=== PATIENT | female | born 1990 | race Caucasian/White ===

== ENCOUNTER 2019-02-20 22:27 | Inpatient (IN) ==
[2019-02-20] MEDS ORDERED: OXYTOCIN 30 UNITS/500 ML BAG IV PRN ×2 (23:06→23:34)
--- NOTE | 2019-02-20 23:06 | History & Physical Report ---
Date of Service February 20, 2019 Assessment & Plan (1) 36 weeks gestation of : 28yo @ 36 3/7 with PPROM. Admit to L&D, labs, EFM/toco, IV access. Unknown GBS status - will treat with Pen G. Pre-37w pending delivery - will give celestone, at least first dose. If still in 24h, will give 2nd dose. Will allow patient to ambulate, but if no regular ctx by 6h post-PPROM, will recommend starting pitocin. She plans to have an epidural. History of Present Illness Chief Complaint: rupture of membranes Primary Care Provider: NO PCP 28yo @ 36 3/7 with large gush of clear fluid at about 9pm this evening. She is from [facility], and has been visiting a cabin near [facility] earlier today. Occasional contractions. No vaginal bleeding. Some movement. She states has been uncomplicated. EDC 03/17/19 based on LMP 06/10/18, confirmed by 20w US. labs: Blood type O+, antibody screen negative, hemoglobin 11.3, hematocrit 33.1, platelets 176, positive history of varicella, rubella immune, treponema non-reactive, HBsAg negative, HIV negative, 28-week labs: Hemoglobin 10.9, platelets 183, Glucola 112. Group B strep swab has not yet been done-is scheduled for her next visit in the office. Per office notes, patient declined genetic testing. Received Tdap 01/24/2019. Allergies Allergy/AdvReac Type Severity Reaction Status Date / Time No Known Allergies Allergy Verified 02/20/19 23:11 Home Medications Home Medications Medication Instructions Recorded Confirmed Type PNV cmb#95-ferrous fumarate-FA 1 tab PO DAILY 02/20/19 02/20/19 History [] ferrous sulfate [iron] 325 mg PO DAILY 02/20/19 02/20/19 History Patient History Medical History [place] teeth removed at age 16 Review of Systems All systems reviewed & are unremarkable except as noted in HPI & below Physical Exam Physical Exam: Gen: AAOx3 NAD CV: RRR L: CTAB Abd: soft, gravid, NTTP Ext: no edema, no calf tenderness SVE: grossly ruptured, /-2. FHT: Cat 1, reactive NST [place]: rare Limited bedside ultrasound: cephalic, + movement and cardiac activity, minimal fluid, anterior placenta. Results & Data Vital Signs (Past 12 Hours) Vital Signs Pulse BP 02/20/19 22:43 71 138/82 02/20/19 22:42 74 127/101 H
[2019-02-20] MEDS: LACTATED RINGER'S 1,000 ML IV PRN (23:11)
[2019-02-20] MEDS ORDERED: PENICILLIN G POTASSIUM 6 MU in DEXTROSE 5% 250 ML IV ONE (23:15)
[2019-02-20 23:22] LABS: Hematocrit (blood only) 30.8 % (37-47); Hemoglobin 10.8 g/dL (12.0-16.0); Mean Corpuscular Volume 91.9 fL (80-100); Mean Platelet Volume 10.4 fL (7.4-10.4); Platelet Count 152 K/uL (130-400); RDW Coefficient of Variation 13.2 % (11.5-14.5); RDW Standard Deviation 43.8 fL (36.4-46.3); Red Blood Count 3.35 M/uL (4.2-5.4); White Blood Count 10.99 K/uL (4.8-10.8)
[2019-02-20] MEDS ORDERED: BETAMETH SOD PHOS/ACETATE IA 6 MG/ML ONE (23:57)
[2019-02-21 00:23] LABS: Mean Corpuscular Hgb Conc 35.1 g/dL (32-36)
[2019-02-21] MEDS ORDERED: ePHEDrine sulfate 50 MG/ML AMP ONE (01:47)
[2019-02-21] MEDS ORDERED: BUPIVACAINE 0.25% 30 ML VIAL ONE (01:47)
[2019-02-21] MEDS ORDERED: fentaNYL 2MCG/ML ROPIV 1.25MG/ML 100 ML BAG EPI ONE (01:48)
[2019-02-21] MEDS ORDERED: fentaNYL citrate 100 MCG/2 ML VIAL ONE (01:48)
--- NOTE | 2019-02-21 02:16 | Anesthesiology Consultation ---
Date of Service February 21, 2019 Assessment & Plan (1) Encounter for pre-operative examination: Chart Review Chart Review: Acceptable Risk for Labor Epidural History Height/Weight Height: 5 ft 4 in Weight: 68.492 kg Allergies Allergy/AdvReac Type Severity Reaction Status Date / Time No Known Allergies Allergy Verified 02/20/19 23:11 Medications Home Medications Medication Instructions Recorded Confirmed Last Taken PNV cmb#95-ferrous fumarate-FA 1 tab PO DAILY 02/20/19 02/20/19 02/20/19 08:00 [] ferrous sulfate [iron] 325 mg PO DAILY 02/20/19 02/20/19 02/20/19 08:00 Active Medications Generic Name Dose Route Start Last Admin Trade Name Freq PRN Reason Stop Dose Admin Betamethasone Acet/Betameth SodPhos 12 mg 02/21/19 09:00 02/21/19 00:09 Celestone Soluspan IM 02/22/19 09:01 12 mg DAILY KOBE Administration Lactated Ringer's 1,000 mls @ 125 mls/hr 02/20/19 23:06 02/21/19 01:40 Lr IV 02/22/19 23:05 999 mls/hr .Q8H PRN Infusion L&D Protocol Protocol Oxytocin 30 units in 500 mls @ 5 mls/hr 02/20/19 23:34 02/21/19 01:35 Pitocin IV 02/22/19 23:33 0.3 units/hr .Q24H PRN 5 mls/hr Labor Induction/Augmentation Titration Protocol 0.3 UNITS/HR Past Medical History Medical History No significant active problems Past Surgical History Surgical History [place] teeth removed at age 16 Social History Smoking Status: Never smoker Hx Alcohol Use: No Hx Substance Use: No Physical Exam Vital Signs Last Vital Signs Temp 37.2 C 02/21/19 00:35 Pulse 76 02/21/19 02:09 Resp 18 02/21/19 00:35 BP 136/86 02/21/19 02:07 Pulse Ox 99 02/21/19 02:09 Testing Laboratory Results 02/20/19 23:12
[2019-02-21] MEDS: LACTATED RINGER'S 1,000 ML IV PRN (02:30)
[2019-02-21] MEDS ORDERED: ePHEDrine sulfate 50 MG/ML AMP IV PRN (02:41)
[2019-02-21] MEDS ORDERED: NALOXONE HCL 1 MG in SODIUM CHLORIDE 0.9% 1000ML 1,000 ML IV PRN (02:41)
[2019-02-21] MEDS ORDERED: ONDANSETRON INJ 2 MG/ML 2 ML VIAL IV PRN (02:41)
[2019-02-21] MEDS ORDERED: fentaNYL 2MCG/ML ROPIV 1.25MG/ML 100 ML BAG EPI PRN (02:41)
[2019-02-21] MEDS ORDERED: NALOXONE HCL 0.4 MG/1 ML VIAL/CARP IV PRN (02:41)
[2019-02-21] MEDS: PENICILLIN G POTASSIUM 3 MU in DEXTROSE 5% 100 ML IV PRN ×2 (03:31→07:32)
--- NOTE | 2019-02-21 07:34 | Obstetrical Progress Note ---
Date of Service February 21, 2019 Subjective Patient comfortable with epidural - not feeling urge to push. FHT Cat 1. [place] Q 2-3 SVE 10/100/+1 per RN Anticipate . Results & Data Vital Signs (Past 12 Hours) Vital Signs Temp Pulse Resp BP Pulse Ox 02/21/19 07:29 84 98 02/21/19 07:24 83 98 02/21/19 07:19 86 99 02/21/19 07:14 91 H 128/84 99 02/21/19 07:09 85 98 02/21/19 07:04 76 98 02/21/19 07:00 78 122/62 02/21/19 06:59 77 97 02/21/19 06:54 84 97 02/21/19 06:49 71 100 02/21/19 06:44 81 122/67 97 02/21/19 06:39 81 98 02/21/19 06:34 82 98 02/21/19 06:29 86 119/68 98 02/21/19 06:24 77 99 02/21/19 06:19 74 99 02/21/19 06:14 82 121/79 99 02/21/19 06:09 75 97 02/21/19 06:04 84 98 02/21/19 05:59 93 H 117/67 98 02/21/19 05:55 37.3 C 18 02/21/19 05:54 101 H 99 02/21/19 05:49 76 98 02/21/19 05:46 77 110/64 02/21/19 05:44 76 96 02/21/19 05:39 74 97 02/21/19 05:34 84 97 02/21/19 05:31 76 18 99/54 L 02/21/19 05:29 74 97 02/21/19 05:24 71 97 02/21/19 05:19 79 97 02/21/19 05:14 76 96/54 L 98 02/21/19 05:09 78 97 02/21/19 05:04 77 98 02/21/19 05:00 80 18 97/56 L 02/21/19 04:59 79 98 02/21/19 04:54 76 98 02/21/19 04:49 74 97 02/21/19 04:45 77 97/55 L 02/21/19 04:44 82 97 02/21/19 04:39 80 97 02/21/19 04:34 82 97 02/21/19 04:29 96 H 18 99/57 L 98 02/21/19 04:24 85 98 02/21/19 04:19 87 98 02/21/19 04:14 90 100/55 L 97 02/21/19 04:09 83 99 02/21/19 04:04 84 98 02/21/19 03:59 37.3 C 77 18 109/57 L 98 02/21/19 03:54 75 98 02/21/19 03:49 75 99 02/21/19 03:44 86 127/63 99 02/21/19 03:39 78 99 02/21/19 03:34 79 100 02/21/19 03:31 78 124/60 02/21/19 03:29 82 100 02/21/19 03:24 79 100 02/21/19 03:19 77 100 02/21/19 03:14 86 100 02/21/19 03:13 93 H 120/81 89 L 02/21/19 03:09 86 18 130/62 100 02/21/19 03:04 80 100 02/21/19 02:59 89 100 02/21/19 02:58 87 130/59 L 02/21/19 02:57 94 H 139/65 02/21/19 02:55 83 119/74 02/21/19 02:54 84 100 02/21/19 02:52 91 H 120/75 02/21/19 02:51 85 115/67 02/21/19 02:49 93 H 100 02/21/19 02:48 78 107/67 02/21/19 02:47 77 105/59 L 02/21/19 02:44 84 107/61 100 02/21/19 02:42 74 108/59 L 02/21/19 02:40 78 102/58 L 02/21/19 02:39 74 99 02/21/19 02:38 72 109/58 L 02/21/19 02:36 74 114/56 L 02/21/19 02:35 65 18 117/57 L 02/21/19 02:34 62 100 02/21/19 02:29 71 100 02/21/19 02:24 79 100 02/21/19 02:20 76 90 02/21/19 02:19 77 99 02/21/19 02:17 72 130/86 02/21/19 02:15 37.0 C 18 02/21/19 02:14 63 100 02/21/19 02:09 76 99 02/21/19 02:07 66 136/86 02/21/19 02:04 73 99 02/21/19 01:59 72 100 02/21/19 01:06 75 130/59 L 02/21/19 00:35 37.2 C 18 02/21/19 00:24 71 131/80 02/20/19 23:18 36.9 C 71 20 138/82 02/20/19 22:43 71 138/82 02/20/19 22:42 36.9 C 74 18 127/101 H
[2019-02-21] MEDS ORDERED: BETAMETH SOD PHOS/ACETATE IA 6 MG/ML IM SCH (09:00)
[2019-02-21] MEDS ORDERED: OXYCODONE/ACETAMINOPHEN 5mg/325mg TAB PO PRN (09:40)
[2019-02-21] MEDS ORDERED: OXYTOCIN 30 UNITS/500 ML BAG IV PRN (09:40)
[2019-02-21] MEDS ORDERED: ACETAMINOPHEN 325 MG TAB PO PRN (09:40)
[2019-02-21] MEDS ORDERED: BENZOCAINE 20% AER SPR 82.5 GM CAN EXT PRN (10:08)
[2019-02-21] MEDS ORDERED: HYDROCORTISONE ACETATE 25 MG SUPP PR PRN (10:08)
[2019-02-21] MEDS ORDERED: SUPERCREAM 0.870% 15 GM JAR EXT PRN (10:08)
[2019-02-21] MEDS ORDERED: DIPHTHERIA/TETANUS/PERTUSSIS 0.5 ML SYR/VIAL IM ONE (10:08)
[2019-02-21] MEDS ORDERED: BISACODYL 10 MG SUPP PR PRN (10:08)
--- NOTE | 2019-02-21 10:54 | Anesthesia Procedure Note ---
Date of Service February 21, 2019 Anesthesia Post Epidural Note Vital Signs Vital Signs: Temp Pulse Resp BP Pulse Ox 36.8 C 76 16 126/80 98 02/21/19 09:45 02/21/19 10:44 02/21/19 10:45 02/21/19 10:44 02/21/19 09:55 Notes Mental Status: alert / awake / arousable and participated in evaluation Nausea / Vomiting: adequately controlled Pain: adequately controlled Airway Patency, RR, SpO2: stable & adequate BP & HR: stable & adequate Hydration State: stable & adequate Neuraxial Anesthesia: was administered and sensory block is resolving Anesthetic Complications: no major complications apparent and Pt Satisfied with anesthetic care Epidural: Removed without complications and With tip intact
--- NOTE | 2019-02-21 12:54 | Delivery Summary ---
DATE OF OPERATION: 02/21/2019 PREOPERATIVE DIAGNOSES: 1. Intrauterine at 36 and 3/7 weeks. 2. Premature rupture of membranes. 3. Unknown GBS status POSTOPERATIVE DIAGNOSIS: Same. PROCEDURES: 1. Epidural anesthesia. 2. PCN for GBS prophylaxis. 3. Normal spontaneous vaginal delivery. 4. Right labial laceration with repair. SURGEON: María Armando M.D. ANESTHESIA: Epidural. ESTIMATED BLOOD LOSS: 300 mL. INDICATIONS: Ling is a 28-year-old white female 1, para 0 who was traveling in the area and it is originally from outside [place]. She was at camp and had a spontaneous rupture of membranes for clear fluid. She presented to labor and delivery and was evaluated and found to be ruptured. Her GBS status was unknown and so decision was made to admit the patient and treat her GBS unknown status with penicillin and allow her to labor here. Records were called for. is uncomplicated. The patient progressed spontaneously, received an epidural anesthetic, proceeded to complete-complete and +2 station, and pushed for approximately an hour to deliver a viable male infant in EDER presentation. Nose and mouth were bulb suctioned. The baby was delivered through a loose body cord. The baby was immediately vigorous and nose and mouth were again bulb suctioned and the infant was placed on the maternal abdomen for drying and attention. The cord was clamped and cut at 1 minute of life. Cord blood and segment were obtained. Placenta was delivered spontaneously intact with a 3-vessel cord. Hemostasis obtained with dilute Pitocin and fundal massage. Cervix, sulci, rectum, and perineum were examined and found to be intact. A small right labial laceration was reapproximated with several interrupted sutures of 4-0 Vicryl. Apgars were 9 and 9. Mother and baby doing well at the end of the delivery. I attest to the content of the Intraoperative Record and any orders documented therein. Any exceptions are noted below. MTDD
[2019-02-21] MEDS: IBUPROFEN 600 MG TAB PO PRN ×2 (16:15→23:35)
[2019-02-21] MEDS: DOCUSATE SODIUM 100 MG CAP PO SCH (21:26)
[2019-02-22 06:51] LABS: Hematocrit (blood only) 29.5 % (37-47); Hemoglobin 10.2 g/dL (12.0-16.0)
--- NOTE | 2019-02-22 08:27 | Obstetrical Progress Note ---
Date of Service February 22, 2019 Assessment & Plan (1) 36 weeks gestation of : (2) Vaginal delivery: Doing well. Routine care. Day #:: 1 Subjective Ambulation: ambulating normally Voiding: no voiding problems Passing Gas:: Yes Diet Tolerance:: regular diet Lochia:: Small Feeding Type:: breast feeding Physical Exam Constitutional WD/WN, vitals as above Cardiovascular Extremities: no calf tenderness and no edema Gastrointestinal (Abdomen) soft, nt, nd fundus firm/nt at u Results & Data Vital Signs (Past 12 Hours) Vital Signs Temp Pulse Resp BP 02/22/19 07:57 36.7 C 66 20 107/71 02/22/19 03:05 36.9 C 54 L 18 122/79 02/21/19 23:15 36.8 C 60 18 130/93
[2019-02-22] MEDS: DOCUSATE SODIUM 100 MG CAP PO SCH ×2 (08:48→20:32)
[2019-02-22] MEDS: IBUPROFEN 600 MG TAB PO PRN ×2 (08:48→20:33)
[2019-02-22] MEDS: PRENATAL VITAMIN 1 TAB PO SCH (08:50)
[2019-02-22] MEDS ORDERED: BISACODYL 5 MG TABEC PO SCH (20:00)
--- NOTE | 2019-02-23 07:13 | Obstetrical Progress Note ---
Date of Service February 23, 2019 Assessment & Plan (1) Encounter for care and examination after delivery: satisfactory exam will discharge to home may follow up with regular OB doctor in 6 weeks, or could follow with us if she chooses. Present on Admission?: No Day #:: 2 Subjective Ambulation: ambulating normally Voiding: no voiding problems Passing Gas:: Yes Diet Tolerance:: regular diet Lochia:: Small Feeding Type:: breast feeding Review of Systems All systems reviewed & are unremarkable except as noted in HPI & below Physical Exam Constitutional WD/WN, vitals as above Gastrointestinal (Abdomen) normal bowel sounds, soft, nontender, no hepatosplenomegaly Musculoskeletal no calf tenderness Genitourinary OB Exam Abdomen: + fundal height Fundus: + firm and + relation to umbilicus (2 below U) Results & Data Vital Signs (Past 12 Hours) Vital Signs Temp Pulse Resp BP 02/22/19 20:00 36.8 C 70 18 132/85
[2019-02-23] MEDS: PRENATAL VITAMIN 1 TAB PO SCH (08:49)
[2019-02-23] MEDS: DOCUSATE SODIUM 100 MG CAP PO SCH (08:49)
== END 2019-02-23 16:15 | disposition home or self-care (01) | DRG 807 ==
LOC: OPB 22:27 → 4S1 22:37 → 4S2 02-21 12:30